=== PATIENT | female | born 1995 | race American Indian/Alaskan Native ===

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

== ENCOUNTER 2017-07-08 18:34 | Emergency (ER) | payer OTHER, BC ==
[2017-07-09] MEDS ORDERED: MOTRIN PO ONE (01:38)
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
[2017-07-09 03:07] VITALS: BP 92/61
== END 2017-07-09 02:15 | disposition home or self-care (01) ==
LOC: ED 18:34
DX: S13.4XXA Sprain of ligaments of cervical spine, initial encounter (principal); J45.909 Unspecified asthma, uncomplicated; V89.2XXA Person injured in unspecified motor-vehicle accident, traffic, initial encounter; Y93.89 Activity, other specified; Y99.8 Other external cause status; Y92.410 Unspecified street and highway as the place of occurrence of the external cause
CPT/HCPCS: 99282

== ENCOUNTER 2017-08-30 23:21 | Emergency (ER) | payer BC ==
[2017-08-30 23:43] VITALS: BP 98/70
[2017-08-31 00:50] LABS: HCG Qualitative,Urine Negative (Negative)
--- NOTE | 2017-08-31 01:45 | XRay Report ---
FINAL REPORT PROCEDURE: XR SHOULDER 2+V RT TECHNIQUE: RIGHT shoulder radiographs including AP views in internal and external rotation. CPT 48442 HISTORY: right shoulder pain COMPARISON: No prior studies are available for comparison. FINDINGS: Fracture (s) and/or Dislocation(s): None . Joint space(s): Normal . Soft tissues: Normal . Bone mineralization: Normal . Foreign bodies: None . IMPRESSION: Normal Examination
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
== END 2017-08-31 04:35 | disposition home or self-care (01) ==
LOC: ED 23:21
DX: S46.811S Strain of other muscles, fascia and tendons at shoulder and upper arm level, right arm, sequela (principal); J45.909 Unspecified asthma, uncomplicated; V49.9XXS Car occupant (driver) (passenger) injured in unspecified traffic accident, sequela
CPT/HCPCS: 81025; 99283

== ENCOUNTER 2019-01-18 16:00 | Emergency (ER) | payer OTHER ==
[2019-01-18 16:20] VITALS: BP 107/70
[2019-01-18 17:12] LABS: HCG Qualitative,Urine Negative (Negative)
--- NOTE | 2019-01-18 17:26 | XRay Report ---
CHEST 2 VIEWS INDICATION / CLINICAL INFORMATION: PERSISTANT COUGH/SOB. COMPARISON: None available. FINDINGS: SUPPORT DEVICES: None. HEART / MEDIASTINUM: No significant abnormality. LUNGS / PLEURA: No significant pulmonary or pleural abnormality. No pneumothorax. ADDITIONAL FINDINGS: No significant additional findings. IMPRESSION: 1. No acute findings. Signer Name: Brown Patel MD Signed: 01/18/2019 5:21 PM Workstation Name: [id number]
--- NOTE | 2019-01-18 18:44 | Emergency Department Report ---
- General Chief Complaint: Headache Stated Complaint: CHEST PAIN/FEVER/SORE THROAT Time Seen by Provider: 01/18/19 17:42 Source: patient Mode of arrival: Ambulatory Limitations: No Limitations - History of Present Illness Initial Comments: This is a 23-year-old female nontoxic, well nourished in appearance, no acute signs of distress presents to the ED with c/o of productive cough, frontal sinus pain, sore throat, chest pain, body aches, rhinorrhea, nasal congestion x1 week. Patient describes productive cough as yellow mucus production. Patient denies any sick contact. Stated has chest pain only during coughing, otherwise denies any chest pain. Patient denies any recent travels, long car, recent hospital stays. Patient denies any calf pain or calf tenderness. Patient denies any chest pain, short of breath, fever, chills, nausea, vomiting, hemoptysis, numbness, tingling, headache or stiff neck. Denies any allergies or PMH. MD Complaint: cough, sore throat, rhinorrhea, nasal congestion, sinus pain -: week(s) (1) Severity: mild Severity scale (0 -10): 8 Quality: aching Consistency: constant Improves With: nothing Worsens With: nothing Associated Symptoms: rhinorrhea, nasal congestion, sore throat, cough, other (frontal sinus pain). denies: fever, chills, myalgias, diaphoresis, headache, stiff neck, chest pain, shortness of breath, abdominal pain, nausea, vomiting, diarrhea, dysuria, rash, confusion, right sweats, weight loss, epistaxis, hoarseness, ear pain - Related Data Previous Rx's Medication Instructions Recorded Last Taken Type Sulfamethoxazole/Trimethoprim 1 each PO BID #20 tablet 10/26/15 Unknown Rx [Bactrim DS TAB] Butalb/Acetamin/Caff 50-325-40 1 tab PO Q8HR PRN #20 tablet 12/06/15 Unknown Rx [Fioricet] Ondansetron [Zofran Odt] 4 mg PO Q8H PRN #10 tab.rapdis 07/01/16 Unknown Rx Cyclobenzaprine [Flexeril] 10 mg PO QHS PRN #7 tablet 07/09/17 Unknown Rx Ibuprofen [Motrin] 600 mg PO Q8H PRN #30 tablet 07/09/17 Unknown Rx Cyclobenzaprine [Flexeril] 10 mg PO TID PRN #10 tablet 08/31/17 Unknown Rx Naproxen [Naprosyn TAB] 375 mg PO BID PRN #20 tablet 08/31/17 Unknown Rx Cetirizine HCl [ZyrTEC] 10 mg PO QDAY #30 capsule 04/11/18 Unknown Rx Ibuprofen [Motrin 600 MG tab] 600 mg PO Q8H #30 tablet 04/11/18 Unknown Rx Azithromycin [Zithromax Z-JULIETA] 250 mg PO DAILY #6 tablet 01/18/19 Unknown Rx Benzonatate [Tessalon Perles] 100 mg PO Q8HR PRN #20 capsule 01/18/19 Unknown Rx Ibuprofen [Motrin] 600 mg PO Q8H PRN #20 tablet 01/18/19 Unknown Rx Allergies Allergy/AdvReac Type Severity Reaction Status Date / Time No Known Allergies Allergy Verified 12/06/15 09:18 ED Review of Systems ROS: Stated complaint: CHEST PAIN/FEVER/SORE THROAT Other details as noted in HPI Constitutional: denies: chills, fever Eyes: denies: eye pain, eye discharge, vision change ENT: throat pain, congestion. denies: ear pain Respiratory: cough. denies: shortness of breath, wheezing Cardiovascular: denies: chest pain, palpitations Endocrine: no symptoms reported Gastrointestinal: denies: abdominal pain, nausea, diarrhea Genitourinary: denies: urgency, dysuria, discharge Musculoskeletal: denies: back pain, joint swelling, arthralgia Skin: denies: rash, lesions Neurological: denies: headache, weakness, paresthesias Psychiatric: denies: anxiety, depression Hematological/Lymphatic: denies: easy bleeding, easy bruising ED Past Medical Hx - Past Medical History Previous Medical History?: Yes Hx Hypertension: No Hx Congestive Heart Failure: No Hx Diabetes: No Hx Deep Vein Thrombosis: No Hx Renal Disease: No Hx Sickle Cell Disease: No Hx Seizures: No Hx Asthma: Yes (Inhaler PRN) Hx COPD: No Hx HIV: No - Surgical History Past Surgical History?: No - Social History Smoking Status: Never Smoker Substance Use Type: None - Medications Home Medications: Home Medications Medication Instructions Recorded Confirmed Last Taken Type Sulfamethoxazole/Trimethoprim 1 each PO BID #20 tablet 10/26/15 Unknown Rx [Bactrim DS TAB] Butalb/Acetamin/Caff 50-325-40 1 tab PO Q8HR PRN #20 tablet 12/06/15 Unknown Rx [Fioricet] Ondansetron [Zofran Odt] 4 mg PO Q8H PRN #10 tab.rapdis 07/01/16 Unknown Rx Cyclobenzaprine [Flexeril] 10 mg PO QHS PRN #7 tablet 07/09/17 Unknown Rx Ibuprofen [Motrin] 600 mg PO Q8H PRN #30 tablet 07/09/17 Unknown Rx Cyclobenzaprine [Flexeril] 10 mg PO TID PRN #10 tablet 08/31/17 Unknown Rx Naproxen [Naprosyn TAB] 375 mg PO BID PRN #20 tablet 08/31/17 Unknown Rx Cetirizine HCl [ZyrTEC] 10 mg PO QDAY #30 capsule 04/11/18 Unknown Rx Ibuprofen [Motrin 600 MG tab] 600 mg PO Q8H #30 tablet 04/11/18 Unknown Rx Azithromycin [Zithromax Z-JULIETA] 250 mg PO DAILY #6 tablet 01/18/19 Unknown Rx Benzonatate [Tessalon Perles] 100 mg PO Q8HR PRN #20 capsule 01/18/19 Unknown Rx Ibuprofen [Motrin] 600 mg PO Q8H PRN #20 tablet 01/18/19 Unknown Rx ED Physical Exam - General Limitations: No Limitations General appearance: alert, in no apparent distress - Head Head exam: Present: atraumatic, normocephalic, other (positive frontal sinus tenderness) - Eye Eye exam: Present: normal appearance - Expanded ENT Exam Expanded Ear exam: Present: normal external inspection Mouth exam: Present: normal external inspection. Absent: drooling, trismus, muffled voice Teeth exam: Present: normal inspection Throat exam: Positive: tonsillar erythema, other (uvula midline. no swdlling). Negative: tonsillomegaly, tonsillar exudate, R peritonsillar mass, L peritonsillar mass - Neck Neck exam: Present: normal inspection, full ROM. Absent: tenderness, meningismus, lymphadenopathy - Respiratory Respiratory exam: Present: normal lung sounds bilaterally, chest wall tenderness (midsternum). Absent: respiratory distress, wheezes, rales, rhonchi, stridor, accessory muscle use, decreased breath sounds, prolonged expiratory - Cardiovascular Cardiovascular Exam: Present: regular rate, normal rhythm, normal heart sounds. Absent: systolic murmur, diastolic murmur, rubs, gallop - Extremities Exam Extremities exam: Present: normal inspection, full ROM, normal capillary refill. Absent: tenderness - Back Exam Back exam: Present: normal inspection, full ROM - Neurological Exam Neurological exam: Present: alert, oriented X3, normal gait - Psychiatric Psychiatric exam: Present: normal affect, normal mood - Skin Skin exam: Present: warm, dry, intact, normal color. Absent: rash ED Course Vital Signs 01/18/19 16:17 Temperature 98.5 F Pulse Rate 91 H Respiratory 16 Rate Blood Pressure 107/70 O2 Sat by Pulse 100 Oximetry - Reevaluation(s) Reevaluation #1: 01/18/19 18:44 Patient is speaking in full sentences with no signs of distress noted. ED Medical Decision Making - Medical Decision Making This is a 23-year-old female that presents with bronchitis, pharyngitis, and sinusitis. Patient is stable and was examined by me. Chest x-ray has been obtained and dictated by radiologist with normal exam. Patient is notified of x-ray results with no questions noted. Patient will be treated with augmentin. Patient was instructed to increase hydration, rest and take Motrin for fever episodes. Vitals stable. Patient is nonfebrile and normal heart rate. Patient was instructed Follow-up with a primary care doctor in 3-5 days or if symptoms worsen and continue return to emergency room as soon as possible. At time time of discharge, the patient does not seem toxic or ill in appearance. No acute signs of distress noted. Patient agrees to discharge treatment plan of care. No further questions noted by the patient. Critical care attestation.: If time is entered above; I have spent that time in minutes in the direct care of this critically ill patient, excluding procedure time. ED Disposition Clinical Impression: Bronchitis Pharyngitis Qualifiers: Pharyngitis/tonsillitis etiology: unspecified etiology Qualified Code(s): J02.9 - Acute pharyngitis, unspecified Sinusitis Qualifiers: Sinusitis location: frontal Chronicity: acute Recurrence: non-recurrent Qualified Code(s): J01.10 - Acute frontal sinusitis, unspecified Disposition: DC-01 TO HOME OR SELFCARE Is pt being admited?: No Does the pt Need Aspirin: No Condition: Stable Instructions: Acute Bronchitis (ED), Sinusitis (ED), Pharyngitis (ED) Additional Instructions: Follow-up with a primary care doctor in 3-5 days or if symptoms worsen and continue return to emergency room as soon as possible. Prescriptions: Ibuprofen [Motrin] 600 mg PO Q8H PRN #20 tablet PRN Reason: Pain Benzonatate [Tessalon Perles] 100 mg PO Q8HR PRN #20 capsule PRN Reason: Cough Azithromycin [Zithromax Z-JULIETA] 250 mg PO DAILY #6 tablet Referrals: PRIMARY CARE, [Primary Care Provider] - 3-5 Days RODRÍGUEZ TELLEZ MD [Staff Physician] - 3-5 Days [facility] [Outside] - 3-5 Days [facility] [Outside] - 3-5 Days Forms: Work/School Release Form(ED)
== END 2019-01-18 18:56 | disposition home or self-care (01) ==
LOC: ED 16:00
DX: J02.9 Acute pharyngitis, unspecified (principal); J01.10 Acute frontal sinusitis, unspecified; J45.909 Unspecified asthma, uncomplicated; Z79.899 Other long term (current) drug therapy; Z79.1 Long term (current) use of non-steroidal anti-inflammatories (NSAID)
CPT/HCPCS: 71046; 81025; 99283

== ENCOUNTER 2019-10-24 15:24 | Outpatient (CLI) | payer OTHER ==
[2019-10-24 15:46] VITALS: BP 101/65
[2019-10-24] MEDS ORDERED: LACTATED RINGERS 1,000 ML ONE ×2 (16:05→17:10)
[2019-10-24 16:47] LABS: Bacteria,Urine 1+ /HPF (Negative); Bilirubin,Urine NEG (Negative); Blood,Urine NEG (Negative); Color,Urine Straw (Yellow); Protein,Urine <15 mg/dL mg/dL (Negative); RBC,Urine < 1.0 /HPF (0.0-6.0); Urobilinogen,Urine < 2.0 mg/dL (<2.0)
[2019-10-24] MEDS ORDERED: ONDANSETRON 4 MG/2 ML INJ IV ONE (17:14)
== END 2019-10-24 17:30 | disposition home or self-care (01) ==
LOC: TRG 15:24 → APU 15:25 → TRG 17:30
PROVIDERS: ATTEND Obstetrics & Gynecology
DX: O21.2 Late vomiting of pregnancy (principal); O26.893 Other specified pregnancy related conditions, third trimester; R52 Pain, unspecified; O47.03 False labor before 37 completed weeks of gestation, third trimester; O99.513 Diseases of the respiratory system complicating pregnancy, third trimester; J45.909 Unspecified asthma, uncomplicated; Z3A.35 35 weeks gestation of pregnancy
CPT/HCPCS: 59025; 81001; 96374; J2405; J7120; 96360